=== PATIENT | female | born 1995 | race Caucasian/White ===

== ENCOUNTER 2019-07-07 02:18 | Emergency (ER) | payer OTHER ==
[~2019-07-07] VITALS: Ht 170.2 cm; Wt 82.7 kg
[2019-07-07 02:20] VITALS: BP 109/78; Ht 170.2 cm; Wt 82.7 kg
== END 2019-07-07 04:09 | disposition left against medical advice (07) ==
LOC: ED 02:18
DX: Z53.21 Procedure and treatment not carried out due to patient leaving prior to being seen by health care provider (principal)